=== PATIENT | female | born 1975 | race Native Hawaiian/Other Pacific Islander ===

== ENCOUNTER 2017-11-24 12:15 | Emergency (ER) | payer BC ==
[~2017-11-24] VITALS: Ht 165.1 cm; Wt 67.1 kg
[2017-11-24 12:24] VITALS: TEMP 98.6
[2017-11-24 13:02] LABS: PLATELET COUNT 226 K/uL (152-353)
[2017-11-24 13:19] LABS: POTASSIUM 3.5 mmol/L (3.6-5.2); SODIUM 139 mmol/L (136-145)
[2017-11-24 14:12] VITALS: BP 101/60
== END 2017-11-24 14:14 | disposition home or self-care (01) ==
LOC: ED 12:15
DX: K21.9 Gastro-esophageal reflux disease without esophagitis (principal); E86.0 Dehydration; X30.XXXA Exposure to excessive natural heat, initial encounter
CPT/HCPCS: 36415; 80053; 82550; 84484; 85027; 85610; 85730; 93005; 96360; 99284

== ENCOUNTER 2019-12-26 09:01 | Outpatient (CLI) | payer BC | END 2019-12-26 23:01 | disposition home or self-care (01) | LOC: US 09:01 | DX: R10.811 Right upper quadrant abdominal tenderness (principal) ==

== ENCOUNTER 2022-05-16 13:49 | Outpatient (CLI) | payer BC | END 2022-05-16 19:02 | disposition home or self-care (01) | LOC: MAMMO 13:49 | PROVIDERS: ATTEND Nurse Practitioner | DX: N64.4 Mastodynia (principal) | CPT/HCPCS: G0279 ==

== ENCOUNTER 2022-07-16 23:36 | Emergency (ER) | payer BC ==
[~2022-07-16] VITALS: Ht 165.1 cm; Wt 61.2 kg
[2022-07-17 00:21] LABS: POTASSIUM 3.6 mmol/L (3.6-5.2)
[2022-07-17 00:48] LABS: PLATELET COUNT 216 K/uL (152-353)
[2022-07-17 01:25] VITALS: BP 98/61; TEMP 97.7
== END 2022-07-17 01:25 | disposition home or self-care (01) ==
LOC: ED 23:36
PROVIDERS: Family Medicine
DX: K59.09 Other constipation (principal); R10.31 Right lower quadrant pain; R10.32 Left lower quadrant pain; R14.3 Flatulence
CPT/HCPCS: 36415; 80053; 80307; 81000; 82150; 83690; 85027; 99283